=== PATIENT | female | born 1955 | race Caucasian/White ===

== ENCOUNTER 2024-07-03 10:41 | Outpatient (RCR) | payer MEDICARE, OTHER, SELFPAY ==
[2024-07-03] MEDS: RECLAST 100 IV (11:05)
[2024-07-03 11:29] VITALS: BP 134/64
[2024-07-03 11:45] VITALS: BP 119/56
== END 2024-07-03 14:44 | disposition home or self-care (01) ==
LOC: OID 10:41
PROVIDERS: ATTENDING PHYSICIAN Internal Medicine Endocrinology, Diabetes & Metabolism; FAMILY PHYSICIAN Family Medicine
DX: M81.0 Age-related osteoporosis without current pathological fracture (principal)
CPT/HCPCS: 96365; J3489